=== PATIENT | male | born 1995 | race American Indian/Alaskan Native ===

== ENCOUNTER 2016-05-03 07:43 | Emergency (ER) | payer SELFPAY ==
[2016-05-03 08:23] VITALS: BP 125/76
[2016-05-03 08:44] LABS: Basophils % (Auto) 0.5 % (0.0-1.8); Eosinophils % (Auto) 0.1 % (0.0-4.3); Hematocrit 40.3 % (35.5-45.6); Hemoglobin 13.6 gm/dl (11.8-15.2); Mean Corpuscular HGB Conc 34 % (32-34); Mean Corpuscular Hemoglobin 28 pg (28-32); Mean Corpuscular Volume 82 fl (84-94); Platelet Count 112 K/mm3 (140-440); Red Cell Distribution Width 13.8 % (13.2-15.2); White Blood Count 4.7 K/mm3 (4.5-11.0)
[2016-05-03 09:05] LABS: Alanine Aminotransferase 20 units/L (7-56); Albumin 4.1 g/dL (3.9-5); Alkaline Phosphatase 53 units/L (35-129); Anion Gap 19 mmol/L; BUN/Creatinine Ratio 12.85; Bilirubin,Total 0.8 mg/dL (0.1-1.2); Blood Urea Nitrogen 9 mg/dL (9-20); Calcium 8.8 mg/dL (8.4-10.2); Carbon Dioxide 23 mmol/L (22-30); Chloride 101.8 mmol/L (98-107); Glucose 91 mg/dL (75-100); Lipase 28 units/L (13-60); Potassium 3.4 mmol/L (3.6-5.0); Sodium 140 mmol/L (137-145); Total Protein 8.2 g/dL (6.3-8.2)
[2016-05-03 10:18] LABS: Bilirubin,Urine NEG (Negative); Blood,Urine NEG (Negative); Ketones,Urine 20 mg/dL (Negative); Leukocyte Esterase,Urine NEG (Negative); Mucus,Urine 1+ /HPF; Nitrite,Urine NEG (Negative)
--- NOTE | 2016-05-05 01:44 | ED Elopement Review ---
ED Pt Elopement review - Results review Lab results: Laboratory Tests 05/03/16 05/03/16 05/03/16 08:37 08:37 Unknown WBC 4.7 RBC 4.90 Hgb 13.6 Hct 40.3 MCV 82 L MCH 28 MCHC 34 RDW 13.8 Plt Count 112 L Lymph % (Auto) 12.9 L [place] % (Auto) 15.8 H Eos % (Auto) 0.1 Baso % (Auto) 0.5 Lymph # 0.6 L [place] # 0.7 Eos # 0.0 Baso # 0.0 Seg Neutrophils % 70.7 H Seg Neutrophils # 3.3 Sodium 140 Potassium 3.4 L Chloride 101.8 Carbon Dioxide 23 Anion Gap 19 BUN 9 Creatinine 0.7 L Estimated GFR > 60 BUN/Creatinine Ratio 12.85 Glucose 91 Calcium 8.8 Total Bilirubin 0.8 AST 30 ALT 20 Alkaline Phosphatase 53 Total Protein 8.2 Albumin 4.1 Albumin/Globulin Ratio 1.0 Lipase 28 Urine Color [place] Urine Turbidity Clear Urine pH 6.0 Ur Specific [place] 1.026 Urine Protein 100 mg/dl Urine Glucose (UA) Neg Urine Ketones 20 Urine Blood Neg Urine Nitrite Neg Urine Bilirubin Neg Urine Urobilinogen 4.0 Ur Leukocyte Esterase Neg Urine WBC (Auto) 6.0 Urine RBC (Auto) 4.0 U Epithel Cells (Auto) < 1.0 Urine Mucus 1+ - Call Back decision Pt Call Back Decision: Pt to F/U with PMD
== END 2016-05-03 20:10 | disposition left against medical advice (07) ==
LOC: ED 07:43
DX: R53.1 Weakness (principal); J02.9 Acute pharyngitis, unspecified; Z53.21 Procedure and treatment not carried out due to patient leaving prior to being seen by health care provider
CPT/HCPCS: 36415; 80053; 81001; 83690; 85025